=== PATIENT | female | born 2000 | race Caucasian/White ===

== ENCOUNTER 2024-04-27 13:08 | Emergency (ER) | payer MEDICAID, SELFPAY ==
[2024-04-27 13:13] VITALS: BP 106/73
[2024-04-27 13:45] LABS: % Basophils 0.4 % (0-2); % Eosinophils 0.2 % (0-6); % Immature Granulocytes 0.2 % (0-0.5); % Lymphocytes 13.2 % (20.5-51.1); % Monocytes 4.2 % (1.7-9.3); % Neutrophils 81.8 % (42.2-75.2); Absolute Lymphocytes 1.1 10^3/uL (1.2-3.4); Absolute Monocytes 0.4 10^3/uL (0.1-0.6); Absolute Neutrophils 6.9 10^3/uL (1.4-6.5); Hemoglobin 10.2 g/dL (12.0-16.0); Mean Corp Hgb Conc. 32.9 g/dL (33.0-37.0); Mean Corpuscular Hgb 29.3 pg (27.0-31.0); Mean Corpuscular Volume 89.1 fL (81.0-99.0); Mean Platelet Volume 12.9 fL (7.4-10.4); Nucleated Red Blood Cells % 0 %; Platelet Count 142 10^3/uL (130-400); Red Blood Cell Count 3.48 10^6/uL (4.20-5.40); Red Cell Dist. Width 12.9 % (11.5-14.5); White Blood Cell Count 8.4 10^3/uL (4.8-10.8)
[2024-04-27 13:54] LABS: ALT (SGPT) 15 U/L (0-35); AST (SGOT) 25 U/L (14-36); Albumin 3.5 g/dl (3.5-5.0); Alkaline Phosphatase 116 U/L (38-126); Blood Urea Nitrogen 9 mg/dl (7-17); Calcium 8.3 mg/dl (8.4-10.2); Carbon Dioxide 24 mmol/L (22-30); Chloride 104 mmol/L (98-107); Glucose 69 mg/dl (70-99); Potassium 3.9 mmol/L (3.5-5.1); Sodium 134 mmol/L (135-145); Total Bilirubin 0.2 mg/dl (0.2-1.3); Total Protein 6.3 g/dl (6.3-8.2); eGFR > 60.00
[2024-04-27] MEDS: NSS 1000 IV ×2 (16:06→19:45)
[2024-04-27] MEDS: ZOFRAN 4 MG IV ×2 (16:06→18:41)
[2024-04-27 16:30] VITALS: BP 110/66
--- NOTE | 2024-04-27 16:30 | ED.GENMED ---
History of Present Illness
General
Chief Complaint: Abdominal Symptoms
Source: patient
Exam Limitations: none
Time Seen by Provider: 04/27/24 15:41
Nursing documentation reviewed up to this point in time: agreed with
History of Present Illness
History of Present Illness:
Patient to ED with complaint of nausea/vomiting/abd. cramping. She is 35 weeks . States she has intermittent dizzness and vomiting throughout , takes zofran in AM daily but states since the AM today she has been unable to keep
anything down. Visiting here from [place]. Denies fever/chills. No sick contacts. Denies vaginal bleeding. . Brought self to ED for eval.
Past History
Past History
ED Past Medical History: None
ED Past Surgical History: Other (ear surgery)
Social History
Tobacco: Non-smoker
Alcohol: None
Drug: None
Review of Systems
Review of Systems
Allergies reviewed?: Yes
All Other Systems: ROS reviewed and negative except as documented in HPI and ROS
Constitutional: Reports no symptoms
EENT: Reports no symptoms
Respiratory: Reports no symptoms
Cardiac: Reports no symptoms
ABD/GI: Reports vomiting and other (generalized abd. cramping)
: Reports no symptoms
Musculoskeletal: Reports no symptoms
Neurological: Reports no symptoms
Psychiatric: Reports no symptoms
Phy Exam
General Physical Exam
General Presentation: well appearing and no apparent distress
General age: appears stated age
General Skin: warm and dry
General Habitus: normal
Cardiovascular Exam
Cardiovascular Exam: regular rate/rhythm and no edema
Pulmonary Exam
Pulmonary Exam: lungs clear and no respiratory distress
Gastrointestinal Exam
Gastrointestinal Exam: non tender and soft
Neurological Exam
Neurological Exam: alert and oriented x3
Musculoskeletal Exam
Musculoskeletal Exam: full ROM
Skin Exam
Skin Exam: normal color, warm/dry and no rash
Psychiatric Exam
Psychiatric Exam: normal mood/affect
Course
Orders/Labs/Results
Orders:
Orders
04/27/24 13:22
CMP [Comprehensive Metabolic Panel] Urgent
Complete Blood Count/With Diff Urgent
04/27/24 15:48
0.9% Sodium Chloride 1000 ml [Nss] 1,000 ml IV BOLUS
Ondansetron Injectable [Zofran] 4 mg IV NOW STA
04/27/24 16:04
COVID-19 Antigen Urgent
Source: Nasal Swab
Influenza A+B Rapid Molecular Urgent
[place] Source: Nasal Swab
Specimen Description:
04/27/24 16:30
Heart Tones ONCE
04/27/24 18:32
Ondansetron Injectable [Zofran] 4 mg IV NOW STA
04/27/24 19:35
Metoclopramide [Reglan] 10 mg IV NOW STA
04/27/24 19:40
0.9% Sodium Chloride 1000 ml [Nss] 1,000 ml IV BOLUS
Abnormal Lab Results
04/27/24
13:22
RBC 3.48 L 10^6/uL
(4.20-5.40)
Hgb 10.2 L g/dL
(12.0-16.0)
Hct 31.0 L %
(37.0-47.0)
MCHC 32.9 L g/dL
(33.0-37.0)
MPV 12.9 H fL
(7.4-10.4)
Absolute Neuts (auto) 6.9 H 10^3/uL
(1.4-6.5)
Absolute Lymphs (auto) 1.1 L 10^3/uL
(1.2-3.4)
Neutrophils % 81.8 H %
(42.2-75.2)
Lymphocytes % 13.2 L %
(20.5-51.1)
Sodium 134 L mmol/L
(135-145)
Glucose 69 L mg/dl
(70-99)
Calcium 8.3 L mg/dl
(8.4-10.2)
04/27/24 13:22
04/27/24 13:22
Vital Signs
Initial and Last Documented VS:
Initial Vital Signs
Temp Pulse Resp BP Pulse Ox
97.3 F 92 16 106/73 100
04/27/24 13:13 04/27/24 13:13 04/27/24 13:13 04/27/24 13:13 04/27/24 13:13
Last Documented Vital Signs
Temp Pulse Resp BP Pulse Ox
97.3 F 96 17 96/61 99
04/27/24 13:13 04/27/24 21:13 04/27/24 21:13 04/27/24 21:13 04/27/24 21:13
*Critical Care Note
Total Time (30-74mins, 75-104mins- exclusive of procedures): Not Applicable
Update Note
Update Note:
Now with diarrhea. Stool for norovirus order placed.
Improved with IV fluids and Reglan. monitorin completed, cleared by OB for discharge. She is discharged home and will follow up with her PCP and OB this week. Given instricctions on s/s to return to ED and she is agreeable to plan.
ED Attending Note
-
Portions of this chart may have been created with voice recognition software.� Occasional wrong word or��sound alike� substitutions may have occurred due to the inherent limitations of voice recognition software.
Discharge Plan
Departure
Patient Disposition: Home (Routine Discharge)
Date of Disposition: 04/27/24
Time of Disposition: 21:12
Patient with high blood pressure during this ER visit?: No
Condition: Good
Covid-19: Not Applicable
Discharge Problem:
Nausea & vomiting
Instructions: Dehydration, Adult (DC), Nausea and Vomiting, Adult (DC)
Prescriptions:
New
metoclopramide HCl [Reglan] 10 mg tablet
10 mg PO Q8HPRN PRN (Reason: nausea and vomiting) Qty: 9 0RF
Referrals:
NONE,* [Family Provider] -
Activity Restrictions/Additional Instructions:
Return to the emergency department immediately for any changes in/worsening of your symptoms
Interventions
Interventions:
*Risk Screen - Suicide Last Done: 04/27/24 13:13
*General Assessment Last Done: 04/27/24 13:13
*Neglect/Abuse Screening Last Done: 04/27/24 13:13
ED- Fall Risk Assessment Last Done: 04/27/24 15:36
*ED COVID-19 Vaccine History Last Done: 04/27/24 13:13
*Nursing Disposition Last Done: 04/27/24 21:26
QL-[id number]-[id number] Assessment Last Done: 04/27/24 15:36
Discharge Date and Time
Discharge Date/Time: 04/27/24 21:27
Print Language: NEPALESE
[2024-04-27 16:53] LABS: COVID-19 Antigen Negative (Negative)
[2024-04-27] MEDS: REGLAN 10 MG IV (19:42)
[2024-04-27 21:13] VITALS: BP 96/61
== END 2024-04-27 21:27 | disposition home or self-care (01) ==
LOC: EMR 13:08
PROVIDERS: Nurse Practitioner; EMERGENCY PHYSICIAN Emergency Medicine
DX: O21.2 Late vomiting of pregnancy (principal); O26.893 Other specified pregnancy related conditions, third trimester; R10.9 Unspecified abdominal pain; Z3A.35 35 weeks gestation of pregnancy
CPT/HCPCS: 96374; 96375; 96376; 96361; 99284; 80053; 85025; 87502; 87811